=== PATIENT | female | born 1970 | race Caucasian/White ===

== ENCOUNTER 2020-12-15 19:39 | Emergency (ER) | payer BC ==
[2020-12-15] MEDS ORDERED: ONDANSETRON 4 MG/2 ML VIAL IVP STA (19:52)
[2020-12-15] MEDS ORDERED: HYDROmorphone 0.5 MG/0.5 ML SYRINGE IVP STA ×2 (19:52→21:29)
--- NOTE | 2020-12-15 19:57 | ED ---
General Adult HPI <Berlin Ryder - Last Filed: 12/15/20 20:48> - General Source: patient Mode of arrival: ambulatory Limitations: no limitations <Vikash Valadez - Last Filed: 12/15/20 21:32> - General Chief complaint: Extremity Injury, Lower Stated complaint: lt ankle injury Time Seen by Provider: 12/15/20 19:46 - History of Present Illness Initial comments: 50-year-old female without any past medical history presents to the emergency room for left ankle injury. Patient was walking and slipped on a root and twisted her ankle. Patient reports that her foot at one way and her leg went the other. Patient is not able to walk on the ankle.Patient has no other complaints at this time including shortness of breath, chest pain, abdominal pain, nausea or vomiting, headache, or visual changes. (Vikash Valadez) - Related Data Previous Rx's Medication Instructions Recorded HYDROcodone/APAP 5-325MG [[place] 1 tab PO Q6HR PRN #12 tab 12/15/20 5-325] Allergies Allergy/AdvReac Type Severity Reaction Status Date / Time No Known Allergies Allergy Verified 12/15/20 19:44 Review of Systems ROS Other: All systems not noted in ROS Statement are negative. <Berlin Ryder - Last Filed: 12/15/20 20:48> ROS Other: All systems not noted in ROS Statement are negative. <Vikash Valadez - Last Filed: 12/15/20 21:32> ROS Statement: Those systems with pertinent positive or pertinent negative responses have been documented in the HPI. Past Medical History Past Medical History: No Reported History History of Any Multi-Drug Resistant Organisms: None Reported Past Surgical History: No Surgical Hx Reported Past Psychological History: No Psychological Hx Reported Smoking Status: Current every day smoker Past Alcohol Use History: Daily Past Drug Use History: Marijuana <Vikash Valadez - Last Filed: 12/15/20 21:32> General Exam Limitations: no limitations General appearance: alert, in no apparent distress Head exam: Present: atraumatic, normocephalic, normal inspection Eye exam: Present: normal appearance, PERRL, EOMI. Absent: scleral icterus, conjunctival injection, periorbital swelling ENT exam: Present: normal exam, mucous membranes moist Neck exam: Present: normal inspection, full ROM. Absent: tenderness, meningismus, lymphadenopathy Respiratory exam: Present: normal lung sounds bilaterally. Absent: respiratory distress, wheezes, rales, rhonchi, stridor Cardiovascular Exam: Present: regular rate, normal rhythm, normal heart sounds. Absent: systolic murmur, diastolic murmur, rubs, gallop, clicks Extremities exam: Present: normal capillary refill (Capillary refill less than 2 seconds, DP pulse 2+ lower extremity), other (Ankle does appear disfigured on exam.). Absent: full ROM (Patient unable to move left foot and ankle) <Vikash Valadez P - Last Filed: 12/15/20 21:32> Course Vital Signs 12/15/20 12/15/20 12/15/20 19:40 19:42 20:31 Temperature 98.0 F Pulse Rate 77 81 80 Respiratory 16 20 16 Rate Blood Pressure 127/60 138/95 147/80 O2 Sat by Pulse 96 99 98 Oximetry 12/15/20 20:48 Temperature Pulse Rate 89 Respiratory 18 Rate Blood Pressure 116/82 O2 Sat by Pulse 97 Oximetry Procedures - Procedural Sedation Procedural Sedation Start Time: 20:40 Procedural Sedation Stop Time: 20:42 Indications: fracture/dislocation reduction ASA Class: II Mallampati Airway Score: 2 Preparation: clinical research monitor applied, pulse oximeter IV Propofol Dose (mgs): 160 Complications: none Patient Tolerated Procedure: well <Berlin Ryder - Last Filed: 12/15/20 20:48> - Orthopedic Joint Reduction Joint #1 Consent Obtained: verbal consent Side: left Technique Used: traction/counter-traction, direct manipulation Post-Reduction Neuro Exam: intact Post-Reduction Vascular Exam: intact Post Reduction X-Ray Obtained: Yes Post Reduction X-Ray Results: reduced Splint Applied: Yes Patient Tolerated Procedure: well, no complications - Orthopedic Splinting/Casting Injury #1 Side: left Lower Extremity Injury Location: short leg Lower Extremity Immobilizer: posterior splint, stirrup splint Other Orthopedic Equipment: crutches <Vikash Valadez P - Last Filed: 12/15/20 21:32> Medical Decision Making <Vikash Valadez P - Last Filed: 12/15/20 21:32> - Medical Decision Making Vitals are stable. Left ankle does appear displaced however this is not an open fracture. There are no lacerations. Her vascular status intact in the left leg. DP pulse 2+. X-ray of the left ankle shows posterior trimalleolar fracture dislocation. This was reduced using conscious sedation. This shows a satisfactory reduction without complicating process seen. Patient was splinted. I was able to palpate her DP pulse after splinting which was 2+ in the left leg, capillary refill less than 2 seconds. Case was discussed with Dr. Roland who was agreeable with seeing patient either inpatient or outpatient. Patient preferred to see him outpatient. Patient was given crutches and pain medication. Discussed to be nonweightbearing. She will return for any worsening symptoms. (Vikash Valadez) Disposition <Berlin Ryder - Last Filed: 12/15/20 20:48> Is patient prescribed a controlled substance at d/c from ED?: Yes When asked, does pt state using other controlled substances?: No If prescribed controlled substance>3 days was MAPS reviewed?: Prescribed <3 Days If opioid is for acute pain is fill amount 7 days or less?: Yes If Rx opioid, was Start Talking consent form obtained?: Yes Time of Disposition: 21:31 <Vikash Valadez - Last Filed: 12/15/20 21:32> Clinical Impression: Trimalleolar fracture of ankle, closed Disposition: HOME SELF-CARE Condition: Good Instructions (If sedation given, give patient instructions): Ankle Fracture (ED), Moderate Sedation (ED) Additional Instructions: Please take Tylenol 3 or [place] for pain. Please follow-up with orthopedics by calling first thing Thursday morning in case they're open. They may not open until Thursday. Use crutches and do not put weight on the left foot. Keep the splint dry. Do not drive or operate machinery while taking the pain medicine. Return to the emergency room for any worsening symptoms. Prescriptions: HYDROcodone/APAP 5-325MG [[place] 5-325] 1 tab PO Q6HR PRN #12 tab PRN Reason: Pain Referrals: José Miguel Blair MD [Primary Care Provider] - 1-2 days Jamie Roland MD [STAFF PHYSICIAN] - 1-2 days
[2020-12-15] MEDS: PROPOFOL 10 MG/ML 20 ML VIAL IV ONE ×2 (20:30→21:04)
[2020-12-15] MEDS ORDERED: SODIUM CHLORIDE 0.9% 1,000 ML IV ONE (20:33)
--- NOTE | 2020-12-15 20:37 | XR ---
EXAMINATION TYPE: XR ankle complete LT DATE OF EXAM: 12/15/2020 COMPARISON: NONE HISTORY: Ankle pain. TECHNIQUE: 2 views FINDINGS: There is posterior dislocation of the talus on the lateral view. There is oblique fracture distal shaft of the fibula. There is a comminuted fracture of the medial and posterior malleolus of t he distal tibia. There is plantar calcaneal spurring. IMPRESSION: There is posterior trimalleolar fracture dislocation of the left ankle.
[2020-12-15 21:00] VITALS: RESP 18
--- NOTE | 2020-12-15 21:09 | XR ---
EXAMINATION TYPE: XR ankle limited LT DATE OF EXAM: 12/15/2020 COMPARISON: NONE HISTORY: Post reduction TECHNIQUE: 2 views FINDINGS: 2 views were obtained through the cast that show anatomic reduction of the talus. There is trimalleolar fracture of the ankle. Fragments are in reasonable a good anatomic position. IMPRESSION: Satisfactory reduction. No complicating process seen.
[2020-12-15] MEDS ORDERED: ACET/COD 300 MG/30 MG STARTER PACK 6 TAB BTL PO STA (21:22)
[2020-12-15 21:58] VITALS: BP 124/80; PULSE 78; TEMP 98.4
== END 2020-12-15 21:58 | disposition home or self-care (01) ==
LOC: EC 19:39
DX: S82.852A Displaced trimalleolar fracture of left lower leg, initial encounter for closed fracture (principal); W01.0XXA Fall on same level from slipping, tripping and stumbling without subsequent striking against object, initial encounter; F17.200 Nicotine dependence, unspecified, uncomplicated
CPT/HCPCS: 73600; 73610; 99283; 27818; 96374; 96375 ×2; 96376; J2405; J2704; J1170

== ENCOUNTER → 2020-12-19 | Outpatient (CLI) | payer BC ==
--- NOTE | 2020-12-20 09:36 | CT ---
EXAMINATION TYPE: CT ankle LT wo con DATE OF EXAM: 12/19/2020 COMPARISON: 12/15/2020 plain film HISTORY: left ankle pain following fall CT DLP: 267.6 mGycm Automated exposure control for dose reduction was used. Contrast: None Technique: Axial images 2 mm thick sections. Reconstructed images in the coronal and sagittal planes. 3-D reconstructed images performed by the technologist are present. FINDINGS: There is a comminuted fracture of the distal tibia. Comminuted fracture distal fibula is also noted. There is a posterior tibial fracture. Small step-off of the posterior medial aspect of this fracture fragment is evident estimated at 0.2 cm. Spiral fracture extends from the distal diaphysis and has in tra-articular extension. This extends into the medial malleolus as well. The fibular fracture major fracture component is an oblique fracture extending posterior to anterior from the metadiaphysis to the lateral malleolus. Small fracture fragments are present anteriorly. The ankle mortise appears intact medially and laterally. Talus appears intact. There is a plantar lorna caneal heel spur present. No additional fractures are within the field of view. IMPRESSION: 1. COMMINUTED FRACTURES OF THE DISTAL TIBIA AND FIBULA. THERE IS INTRA-ARTICULAR EXTENSION WITH A SLI GHT STEP-OFF OF THE POSTERIOR TIBIAL FRACTURE.
== END | disposition home or self-care (01) ==
LOC: RADCTMAIN 17:47
PROVIDERS: ATTEND Orthopaedic Surgery
DX: S82.252A Displaced comminuted fracture of shaft of left tibia, initial encounter for closed fracture (principal); S82.452A Displaced comminuted fracture of shaft of left fibula, initial encounter for closed fracture

== ENCOUNTER → 2021-05-24 | Outpatient (CLI) | payer BC ==
--- NOTE | 2021-05-27 11:37 | MM ---
Reason for exam: screening (asymptomatic). Last mammogram was performed 2 years and 9 months ago. History: Patient is postmenopausal. Physical Findings: A clinical breast exam by your physician is recommended on an annual basis and results should be correlated with mammographic findings. MG 3D Screening Mammo W/Cad Bilateral CC and MLO view(s) were taken. Prior study comparison: August 25, 2018, mammogram, performed at [facility]. July 01, 2011, mammogram, performed at [facility]. There are scattered fibroglandular densities. There is no discrete abnormality. ASSESSMENT: Negative, BI-RAD 1 RECOMMENDATION: Routine screening mammogram of both breasts in 1 year.
== END | disposition home or self-care (01) ==
LOC: RADMAMWWP 09:38
PROVIDERS: ATTEND Family Medicine
DX: Z12.31 Encounter for screening mammogram for malignant neoplasm of breast (principal); Z78.0 Asymptomatic menopausal state
CPT/HCPCS: 77063; 77067

== ENCOUNTER → 2022-12-19 | Outpatient (CLI) | payer OTHER ==
--- NOTE | 2022-12-22 08:38 | MM ---
Reason for Exam: Screening (asymptomatic). Last mammogram was performed 1 year(s) and 7 month(s) ago. Patient History: Menarche at age 12. First Full-Term at age 29. Late child-bearing (after 29). Postmenopausal. Patient has history of breast feeding. Risk Values: Naomi 5 year model risk: 1.5%. NCI Lifetime model risk: 11.6%. Prior Study Comparison: 07/01/2011 Screening Mammogram, [facility]. 08/25/2018 Screening Mammogram, [facility]. 05/24/2021 Bilateral Screening Mammogram, [facility]. Tissue Density: There are scattered fibroglandular densities. Findings: Analyzed By CAD. There is no suspicious group of microcalcifications or new suspicious mass in either breast. Overall Assessment: Negative, BI-RAD 1 Management: Screening Mammogram of both breasts in 1 year. A clinical breast exam by your physician is recommended on an annual basis and results should be correlated with mammographic findings. Electronically signed and approved by: Rai Acosta D.O.
== END | disposition home or self-care (01) ==
LOC: RADMAMWWP 12:45
PROVIDERS: ATTEND Family Medicine
DX: Z12.31 Encounter for screening mammogram for malignant neoplasm of breast (principal); Z78.0 Asymptomatic menopausal state
CPT/HCPCS: 77063; 77067

== ENCOUNTER → 2024-01-04 | Outpatient (CLI) | payer OTHER ==
--- NOTE | 2024-01-06 10:03 | MM ---
Reason for Exam: Screening (asymptomatic). Last screening mammogram was performed 12 month(s) ago. Patient History: Menarche at age 12. First Full-Term at age 29. Late child-bearing (after 29). Postmenopausal. Patient has history of breast feeding. Risk Values: Naomi 5 year model risk: 1.6%. NCI Lifetime model risk: 11.4%. Prior Study Comparison: 08/25/2018 Screening Mammogram, [facility]. 05/24/2021 Bilateral Screening Mammogram, [facility]. 12/19/2022 Bilateral MG 3D screening mammo w/cad, [facility]. Tissue Density: The breasts are almost entirely fatty. Findings: Analyzed By CAD. There is no suspicious group of microcalcifications or new suspicious mass in either breast. Overall Assessment: Negative, BI-RAD 1 Management: Screening Mammogram of both breasts in 1 year. . Patient should continue monthly self-breast exams. A clinical breast exam by your physician is recommended on an annual basis. This exam should not preclude additional follow-up of suspicious palpable abnormalities. Note on Naomi scores and lifetime risk: 1. A Naomi score greater than 3% is considered moderate risk. If this is the case, consider specialist referral to assess eligibility for a risk reducing agent. 2. If overall lifetime risk for the development of breast cancer is 20% or higher, the patient may qualify for future screening with alternating mammogram and breast MRI. Electronically signed and approved by: Joe Fox M.D. Radiologis
== END | disposition home or self-care (01) ==
LOC: RADMAMWWP 15:02
PROVIDERS: ATTEND Family Medicine
DX: Z12.31 Encounter for screening mammogram for malignant neoplasm of breast (principal); Z78.0 Asymptomatic menopausal state
CPT/HCPCS: 77063; 77067